=== PATIENT | female | born 1960 | race Caucasian/White ===

== ENCOUNTER → 2020-08-15 14:41 | Outpatient (CLI) | payer OTHER, SELFPAY ==
--- NOTE | ~2020-08-15 | MM_ITS ---
EXAMINATION: MM screening [facility] BI w ricardo HISTORY: Screening mammogram TECHNIQUE: Craniocaudal and mediolateral oblique 3-D tomosynthesis images were obtained and synthetic 2-D images were generated. CAD analysis was submitted and interpreted. COMPARISON: 07/26/2019, 07/16/2019, 09/06/2017 BREAST PARENCHYMAL COMPOSITION: There are scattered areas of fibroglandular density. FINDINGS: Lumpectomy changes are present the upper outer quadrant of the right breast. There is no ev idence of suspicious mass, calcification, or architectural distortion to suggest malignancy in either breast. There has been no suspicious interval change. IMPRESSION: 1. No mammographic evidence of malignancy. 2. Recommend routine screening mammography in one year. BI-RADS Category 2: Benign finding(s). Reviewed, dictated and finalized at location A. TER USHER
== END ==
PROVIDERS: Visit Provider Nurse Practitioner Women's Health
DX: Z12.31 Encounter for screening mammogram for malignant neoplasm of breast (principal)
CPT/HCPCS: 77063; 77067

== ENCOUNTER → 2021-08-18 17:44 | Outpatient (CLI) | payer OTHER, SELFPAY ==
--- NOTE | ~2021-08-18 | MM_ITS ---
EXAMINATION: MM screening [facility] BI w ricardo HISTORY: Screening mammogram, history of right breast cancer TECHNIQUE: Craniocaudal and mediolateral oblique 3-D tomosynthesis images were obtained and synthetic 2-D images were generated. CAD analysis was submitted and interpreted. COMPARISON: 08/15/2020, 07/26/2019, 07/16/2019 BREAST PARENCHYMAL COMPOSITION: There are scattered areas of fibroglandular density. FINDINGS: Stable lumpectomy changes are noted in the upper outer quadrant of the right breast. There is no evidence of suspicious mass, calcification, or architectural distortion to suggest malignancy i n either breast. There has been no suspicious interval change. IMPRESSION: 1. No mammographic evidence of malignancy. 2. Recommend routine screening mammography in one year. BI-RADS Category 2: Benign finding(s). Reviewed, dictated and finalized at location A. 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
== END ==
PROVIDERS: PCP Family Medicine; Visit Provider Nurse Practitioner Women's Health
DX: Z12.31 Encounter for screening mammogram for malignant neoplasm of breast (principal)
CPT/HCPCS: 77063; 77067

== ENCOUNTER → 2022-07-19 07:58 | Outpatient (CLI) | payer OTHER, SELFPAY ==
--- NOTE | ~2022-07-19 | MM_ITS ---
EXAMINATION: MM diagnostic [facility] RT w ricardo HISTORY: Intermittent right breast pain TECHNIQUE: Additional 3-D tomosynthesis images of the right breast were performed and synthetic 2-D i mages were generated. CAD analysis was submitted and interpreted. COMPARISON: Comparison to multiple prior studies sequentially, with oldest reviewed study dated 07/02. BREAST PARENCHYMAL COMPOSITION: Breast composed of scattered areas of fibroglandular density FINDINGS: There are no suspicious masses, calcifications or architectural distortion in the right angelo ast to suggest malignancy. The right breast is stable. IMPRESSION: 1. No mammographic evidence for malignancy in the right breast. 2. Routine yearly screening mammogram and regular clinical breast examination are recommended. BI-RADS Category 1: Negative Reviewed, dictated and finalized at location A. IMPRESSION: 1. No mammographic evidence for malignancy in the right breast. 2. Routine yearly screening mammogram and regular clinical breast examination a re recommended. BI-RADS Category 1: Negative
== END ==
PROVIDERS: PCP Family Medicine; Visit Provider Nurse Practitioner Women's Health
DX: N64.4 Mastodynia (principal)
CPT/HCPCS: 77061; 77065; G0279

== ENCOUNTER → 2022-08-19 10:27 | Outpatient (CLI) | payer OTHER, SELFPAY ==
--- NOTE | ~2022-08-19 | MM_ITS ---
EXAMINATION: MM screening [facility] LT w ricardo HISTORY: Screening TECHNIQUE: Craniocaudal and mediolateral oblique 3-D tomosynthesis images of the left breast were obt ained and synthetic 2-D images were generated. CAD analysis was submitted and interpreted. COMPARISON: Comparison to multiple prior studies sequentially, with oldest reviewed study dated 09/02. BREAST PARENCHYMAL COMPOSITION: There are scattered areas of fibroglandular density. FINDINGS: There is no evidence of suspicious mass, calcification, or architectural distortion to sugg est malignancy in the left breast. There has been no suspicious interval change. IMPRESSION: 1. No mammographic evidence of malignancy. 2. Recommend routine screening mammography in one year. BI-RADS Category 1: Negative Reviewed, dictated and finalized at location A. 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
== END ==
PROVIDERS: PCP Family Medicine; Visit Provider Obstetrics & Gynecology
DX: Z12.31 Encounter for screening mammogram for malignant neoplasm of breast (principal)
CPT/HCPCS: 77063; 77067

== ENCOUNTER → 2023-03-14 10:02 | Outpatient (CLI) | payer OTHER, SELFPAY ==
--- NOTE | ~2023-03-14 | XR_ITS ---
EXAMINATION: XR ribs RT 2V INDICATION: Pleurodynia TECHNIQUE: 3 views of the right ribs were obtained. COMPARISON: 09/14/2017 FINDINGS: There is an anterolateral fracture of the right ninth rib. No additional fracture is identi fied. The visualized lungs are clear. There is mild osteoarthritis at the acromioclavicular joint. IMPRESSION: 1. Anterolateral fracture of the right ninth rib. Reviewed, dictated and finalized at location A.
== END ==
PROVIDERS: PCP Family Medicine; Visit Provider Nurse Practitioner Family
DX: S22.31XA Fracture of one rib, right side, initial encounter for closed fracture (principal); X58.XXXA Exposure to other specified factors, initial encounter
CPT/HCPCS: 71100

== ENCOUNTER → 2023-05-25 12:43 | Outpatient (CLI) | payer OTHER, SELFPAY ==
--- NOTE | ~2023-05-25 | DEXA_ITS ---
Bone Density Report Name: ATIF ROSE Age: 62 Sex: Female Ethnicity: White Date of : 1960 Indication: osteopenia; height loss; prior fracture;postmenopausal Referring Provider: YURI MULLEN Study: Bone densitometry was performed. Exam Date: May 25, 2023 Accession number: [id number] Bone Density: Region BMD T-score Z-score Classification AP Spine (L1-L4) 0.789 -2.3 -0.9 Osteopenia Femoral Neck (Left) 0.642 -1.9 -0.6 Osteopenia Total Hip (Left) 0.840 -0.8 0.2 Normal Femoral Neck (Right) 0.635 -1.9 -0.6 Osteopenia Total Hip (Right) 0.850 -0.8 0.2 Normal Total Hip Mean 0.845 -0.8 0.2 Normal World Health Organization criteria for BMD impression classify patients as: Normal (T-score at or above -1.0), Osteopenia (T-score between -1.0 and -2.5), or Osteoporosis (T-score at or below -2.5). 10-year Fracture Risk(1): Major Osteoporotic Fracture 16% Hip Fracture 2.0% Reported Risk Factors: [place] (), Neck BMD=0.635, BMI=28.0, previous fracture (1) FRAX(R) Version 3.08. Fracture probability calculated for an untreated patient. Fracture probability may be lower if the patient has received treatment. Previous Exams: Region Exam Age BMD T-score BMD Change BMD Change Date g/cm2 vs Baseline vs Previous AP Spine(L1-L4) 05/25/2023 62 0.789 -2.3 -0.034* -0.034* 10/22/2019 59 0.823 -2.0 Total Hip(Left) 05/25/2023 62 0.840 -0.8 -0.047* -0.047* 10/22/2019 59 0.888 -0.4 Total Hip(Right) 05/25/2023 62 0.850 -0.8 -0.020 -0.020 10/22/2019 59 0.870 -0.6 *Denotes significance at 95% confidence level, LSC for AP Spine = 0.022 g/cm2, LSC for Total Hip = 0.027 g/cm2 Clinical Information Provided by Patient: Has had a low trauma fracture Has used the following medications: Vitamin D Patient maximum height was 64 Menopause Age: 52 Does not regularly consume dairy products Drinks caffeinated beverages Onset of menses at age 15 Number of children 2 Impression: The patient has low bone mass, based on the Total Spine T-score. The patient has an estimated ten-year risk of hip fracture of 2% and an estimated ten-year risk of major fracture of 16%, based on the WHO FRAX algorithm. The patient has risk factors, including: previous fracture. The BMD for the AP Spine(L1-L4) decreased, changing by -0.034 since the last DXA exam. The BMD for the Total Hip(Left) decreased, changing by -0.
== END ==
PROVIDERS: PCP Obstetrics & Gynecology; Visit Provider Nurse Practitioner Family
DX: M85.89 Other specified disorders of bone density and structure, multiple sites (principal); S22.39XA Fracture of one rib, unspecified side, initial encounter for closed fracture; Z78.0 Asymptomatic menopausal state; X58.XXXA Exposure to other specified factors, initial encounter
CPT/HCPCS: 77080

== ENCOUNTER → 2023-06-09 13:38 | Outpatient (CLI) | payer OTHER, SELFPAY ==
--- NOTE | ~2023-06-09 | XR_ITS ---
EXAMINATION: XR ribs LT 2V DATE: 06/09/2023 14:06 INDICATION: Pleurodynia. Left rib pain. TECHNIQUE: 2 views of the left ribs on 4 radiographs were obtained. COMPARISON: Chest single view 09/16/2017 FINDINGS: There is no pneumonia, pleural effusion, pneumothorax. The heart size is normal. There is n o rib fracture. IMPRESSION: 1. No rib fracture. Reviewed, dictated and finalized at location E. IMPRESSION: 1. No rib fracture.
== END ==
PROVIDERS: PCP Family Medicine; Visit Provider Nurse Practitioner Family
DX: R07.81 Pleurodynia (principal)
CPT/HCPCS: 71100

== ENCOUNTER 2023-06-28 02:53 | Day surgery (SDC) | payer OTHER, SELFPAY ==
[2023-06-13 13:59] VITALS: BMI 27.3
[2023-06-28 06:22] VITALS: BP 143/70; PULSE 62; RESP 20; TEMP 36.2; O2SAT 100; BMI 27.8
[2023-06-28] MEDS: LACTATED RINGERS 1,000 ML 150 ML IV CONT (06:31)
--- NOTE | 2023-06-28 07:14 | WPDANESEPPF ---
Anes - Initial Pre Proc Eval Procedure: Operation Date: 06/28/23 07:30 Proposed Procedures p Screening Colonoscopy - Sarbjit Jones MD Date/Time: 06/28/23 07:14 Surgeon: Sarbjit Jones MD Pre Op Diagnosis: neoplasm screening Patient Data Age: 62 Gender: F Height: 1.6 m Weight: 71.2 kg Last Vital Signs Temp 97.2 F L 06/28/23 06:22 Pulse 62 06/28/23 06:22 Resp 20 06/28/23 06:22 BP 143/70 H 06/28/23 06:22 Pulse Ox 100 06/28/23 06:22 O2 Del Method Room Air 06/28/23 06:22 Allergies Allergy/AdvReac Type Severity Reaction Status Date / Time No Known Allergies Allergy Verified 06/28/23 06:19 Home Medications Medication Instructions Recorded Confirmed Type blood sugar diagnostic (OneTouch #100 ea 05/19/20 06/13/23 Rx Verio test strips) lancets 30 gauge (OneTouch Delica #100 ea 05/19/20 06/13/23 Rx Lancets) cholecalciferol (vitamin D3) 1,250 50,000 unit PO WEEKLY #12 caps 10/07/21 06/13/23 Rx mcg (50,000 unit) capsule lisinopril 10 mg tablet 10 mg PO DAILY #90 tabs 07/14/22 06/13/23 Rx magnesium 1 tablet PO DAILY 06/13/23 06/13/23 History Patient hx anesthesia problems: none Family hx anesthesia problems: none Results Review: All pre-operative results and documents have been reviewed as part of the pre-operative evaluation. [facility] Past Medical History Medical History (Updated 06/09/23 @ 13:34 by Sonia Reese NP) Abnormal fasting glucose fasting glucose 110 with hemoglobin A1c 5.4 on 08/17/2021. Glucose 104 and hemoglobin A1c 5.5 on 01/18/2022. Glucose 110 with hemoglobin A1c 5.7 on 07/09/2022. Glucose 115 with hemoglobin A1c 5.6 on 01/03/2025. BMI 25.0-25.9,adult BMI 27.0-27.9,adult Cellulitis Chronic anxiety Colon cancer screening COVID-19 (~08/06/20) unvaccinated Essential (primary) hypertension Exposure to COVID-19 virus Invasive ductal carcinoma of right breast, stage 1 Mixed hyperlipidemia total cholesterol 226, triglycerides 164, HDL 65, LDL 131 on 08/17/2021. Total cholesterol 244, triglycerides 157, HDL 61 and LDL 154 on 01/14/2022. total cholesterol 206, HDL 48, triglycerides 112, LDL 136 on 07/09/2022. total cholesterol 233, triglycerides 171, HDL 56, LDL 146 with ratio of 4.2 on 01/03/2025. Osteopenia Overweight (BMI 25.0-29.9) Postmenopausal Pre-diabetes Rib fracture (~01/2023) Fracture anterior lateral aspect 9th rib on the right on x-ray 03/14/2023. Rib pain on left side Rib pain on right side Right anterior shoulder pain (~06/2022) Vitamin D deficiency, unspecified level low at 25 on 08/17/2021. Level normal at 41 on 01/14/2022. Level normal at 49 on 01/03/2025 Surgical History Surgical History (Updated 11/22/19 @ 08:27 by Virginia Armas MA) H/O section (~1986) History of lumpectomy (~10/2019) History of tubal ligation (~1989) Previous section (~1989) Family History Family History (Updated 11/22/19 @ 08:28 by Virginia Armas MA) Father Acute myocardial infarction Grandparent Carcinoma of colon Social History Social History (Updated 03/14/23 @ 09:27 by Diane Dejesus, [facility]) Smoking status: Never smoker Second hand tobacco smoke exposure: No Alcohol intake: current Alcohol use details: Occasionally Substance use: never Substance use type: does not use Lack of Transportation: No Lack of Food: Never True Current Housing: I Have Housing Concerned About Future Housing: No Difficulty Paying Gas/Electric Bills: No Difficulty Paying for Meds: No Currently Unemployed: Decline to Answer Education: High School Diploma/GED Difficulty w/ Childcare or Family Care: No Living arrangements: with family Gender identity (if verbalized by the patient): Female Spiritual care concerns: No Anes - Eval Final PreProcedure Day of Procedure 06/28/23 07:14 Patient weight: normal Heart: regular rate and rhythm Lungs: clear to auscultation Airway: Mall
--- NOTE | 2023-06-28 07:33 | PM.HPGS ---
History of Present Illness History of Present Illness Consent: Risks, benefits, and alternatives have been discussed and questions answered. Patient agrees to proceed with procedure. Chief complaint: neoplasm screening Narrative: Whitney Lopez is a 62 year old female present since for screening colonoscopy. patient's current weight appetite bowel movements are normal. Patient denies abdominal pain. She has had no bleeding. Family history is noncontributory. Previous colonoscopy 11 years ago was unremarkable. Review of Systems Review of Systems: Review of systems noncontributory. [facility] Past Medical History Medical History (Updated 06/09/23 @ 13:34 by Sonia Reese NP) Abnormal fasting glucose fasting glucose 110 with hemoglobin A1c 5.4 on 08/17/2021. Glucose 104 and hemoglobin A1c 5.5 on 01/18/2022. Glucose 110 with hemoglobin A1c 5.7 on 07/09/2022. Glucose 115 with hemoglobin A1c 5.6 on 01/03/2025. BMI 25.0-25.9,adult BMI 27.0-27.9,adult Cellulitis Chronic anxiety Colon cancer screening COVID-19 (~08/06/20) unvaccinated Essential (primary) hypertension Exposure to COVID-19 virus Invasive ductal carcinoma of right breast, stage 1 Mixed hyperlipidemia total cholesterol 226, triglycerides 164, HDL 65, LDL 131 on 08/17/2021. Total cholesterol 244, triglycerides 157, HDL 61 and LDL 154 on 01/14/2022. total cholesterol 206, HDL 48, triglycerides 112, LDL 136 on 07/09/2022. total cholesterol 233, triglycerides 171, HDL 56, LDL 146 with ratio of 4.2 on 01/03/2025. Osteopenia Overweight (BMI 25.0-29.9) Postmenopausal Pre-diabetes Rib fracture (~01/2023) Fracture anterior lateral aspect 9th rib on the right on x-ray 03/14/2023. Rib pain on left side Rib pain on right side Right anterior shoulder pain (~06/2022) Vitamin D deficiency, unspecified level low at 25 on 08/17/2021. Level normal at 41 on 01/14/2022. Level normal at 49 on 01/03/2025 Surgical History Surgical History (Updated 11/22/19 @ 08:27 by Virginia Armas MA) H/O section (~1986) History of lumpectomy (~10/2019) History of tubal ligation (~1989) Previous section (~1989) Family History Family History (Updated 11/22/19 @ 08:28 by Virginia Armas MA) Father Acute myocardial infarction Grandparent Carcinoma of colon Social History Social History (Updated 03/14/23 @ 09:27 by Diane Dejesus, [facility]) Smoking status: Never smoker Second hand tobacco smoke exposure: No Alcohol intake: current Alcohol use details: Occasionally Substance use: never Substance use type: does not use Lack of Transportation: No Lack of Food: Never True Current Housing: I Have Housing Concerned About Future Housing: No Difficulty Paying Gas/Electric Bills: No Difficulty Paying for Meds: No Currently Unemployed: Decline to Answer Education: High School Diploma/GED Difficulty w/ Childcare or Family Care: No Living arrangements: with family Gender identity (if verbalized by the patient): Female Spiritual care concerns: No Meds Home Medications and Allergies Home Medications Medication Instructions Recorded Confirmed Type blood sugar diagnostic (OneTouch #100 ea 05/19/20 06/13/23 Rx Verio test strips) lancets 30 gauge (OneTouch Delica #100 ea 05/19/20 06/13/23 Rx Lancets) cholecalciferol (vitamin D3) 1,250 50,000 unit PO WEEKLY #12 caps 10/07/21 06/13/23 Rx mcg (50,000 unit) capsule lisinopril 10 mg tablet 10 mg PO DAILY #90 tabs 07/14/22 06/13/23 Rx magnesium 1 tablet PO DAILY 06/13/23 06/13/23 History Allergies Allergy/AdvReac Type Severity Reaction Status Date / Time No Known Allergies Allergy Verified 06/28/23 06:19 Vital Signs Vital Signs - 24 hr 06/28/23 06:22 Temperature 97.2 F L Pulse Rate 62 Respiratory Rate 20 Blood Pressure 143/70 H Pulse Oximetry 100 Oxygen Delivery Room Air Exam Narrative: Physical exam reveals pa
[2023-06-28 07:58] VITALS: BP 102/62; PULSE 73; RESP 21; O2SAT 99
[2023-06-28 08:08] VITALS: BP 90/52; PULSE 72; RESP 21; O2SAT 99
[2023-06-28 08:18] VITALS: BP 110/61; PULSE 60; RESP 16; O2SAT 99
== END 2023-06-28 08:26 | disposition home or self-care (01) ==
PROVIDERS: PCP Family Medicine; Visit Provider Internal Medicine Gastroenterology
PROC: 0DJD8ZZ Inspection of Lower Intestinal Tract, Via Natural or Artificial Opening Endoscopic (ICD-10-PCS; CPT 45378; principal; 2023-06-28 07:30)
DX: Z12.11 Encounter for screening for malignant neoplasm of colon (principal); K64.8 Other hemorrhoids; I10 Essential (primary) hypertension; E78.2 Mixed hyperlipidemia; E55.9 Vitamin D deficiency, unspecified; R73.03 Prediabetes; Z85.3 Personal history of malignant neoplasm of breast
CPT/HCPCS: 45378; J2001; J2704; J7120

== ENCOUNTER → 2023-08-22 10:13 | Outpatient (CLI) | payer OTHER, SELFPAY ==
--- NOTE | ~2023-08-22 | MM_ITS ---
EXAMINATION: MM screening [facility] BI w ricardo HISTORY: Screening mammogram TECHNIQUE: Craniocaudal and mediolateral oblique 3-D tomosynthesis images were obtained and synthetic 2-D images were generated. CAD analysis was submitted and interpreted. COMPARISON: 08/19/2022 left screening mammogram 07/19/2022 diagnostic right mammogram 08/18/2021, 08/15/2020 bilateral screening mammogram examinations BREAST PARENCHYMAL COMPOSITION: There are scattered areas of fibroglandular density. FINDINGS: There is no evidence of suspicious mass, calcification, or architectural distortion to sugg est malignancy in either breast. There has been no suspicious interval change. IMPRESSION: 1. No mammographic evidence of malignancy. 2. Recommend routine screening mammography in one year. BI-RADS Category 1: Negative Reviewed, dictated and finalized at location A. CTOR BUILDING
== END ==
PROVIDERS: PCP Obstetrics & Gynecology; Visit Provider Obstetrics & Gynecology
DX: Z12.31 Encounter for screening mammogram for malignant neoplasm of breast (principal)
CPT/HCPCS: 77063; 77067

== ENCOUNTER 2024-08-24 10:10 | Outpatient (CLI) | payer OTHER, SELFPAY ==
--- NOTE | ~2024-08-24 | MM_ITS ---
EXAMINATION: MM screening [facility] BI w ricardo HISTORY: Screening mammogram TECHNIQUE: Craniocaudal and mediolateral oblique 3-D tomosynthesis images were obtained and synthetic 2-D images were generated. CAD analysis was submitted and interpreted. COMPARISON: 08/22/2023, 08/19/2022, 07/19/2022, 08/18/2021 BREAST PARENCHYMAL COMPOSITION:Not Dense. There are scattered areas of fibroglandular density. FINDINGS: No suspicious mass, calcification, or architectural distortion are identified in either angelo ast to suggest malignancy. There has been no suspicious interval change. IMPRESSION: No mammographic evidence of malignancy. Recommend routine screening mammography in one year. BI-RADS Category 1: Negative Reviewed, dictated and finalized at location . 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
== END 2024-08-24 10:11 | disposition home or self-care (01) ==
PROVIDERS: PCP Family Medicine; Visit Provider Obstetrics & Gynecology
DX: Z12.31 Encounter for screening mammogram for malignant neoplasm of breast (principal)
CPT/HCPCS: 77063; 77067

== ENCOUNTER 2025-08-26 10:39 | Outpatient (CLI) | payer OTHER, SELFPAY ==
--- NOTE | ~2025-08-26 | MM_ITS ---
EXAMINATION: MM screening [facility] BI w ricardo HISTORY: Screening TECHNIQUE: Craniocaudal and mediolateral oblique 3-D tomosynthesis images were obtained and synthetic 2-D images were generated. CAD analysis was submitted and interpreted. COMPARISON: Comparison to multiple prior studies sequentially, with oldest reviewed study dated 08/15/2020. BREAST PARENCHYMAL COMPOSITION: Not Dense. The breasts are almost entirely fatty. FINDINGS: There is no evidence of suspicious mass, calcification, or architectural distortion to suggest malignancy in either breast. There has been no suspicious interval change. IMPRESSION: 1. No mammographic evidence of malignancy. 2. Recommend routine screening mammography in one year. BI-RADS Category 1: Negative Reviewed, dictated and finalized at location O. 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
== END 2025-08-26 10:40 | disposition home or self-care (01) ==
PROVIDERS: PCP Nurse Practitioner; Visit Provider Family Medicine
DX: Z12.31 Encounter for screening mammogram for malignant neoplasm of breast (principal)
CPT/HCPCS: 77063; 77067